=== PATIENT | male | born 1945 | race Caucasian/White ===

== ENCOUNTER 2019-06-02 13:53 | Emergency (ER) | payer MEDICARE, OTHER ==
[~2019-06-02] VITALS: Ht 177.8 cm; Wt 75.0 kg
[~2019-06-02 13:53] MED LIST: ATOR20TA66 PO; CALC-336; FAMO-128 PO; FOLI1TAB16 PO; IRON SUPPLEMENT; METH2.5T PO; MULT-933 PO; TADA5TAB2 PO; UBID10CA4
[2019-06-02] MEDS ORDERED: aspirin 81mg tab.chew PO ONE (14:00)
[2019-06-02 14:24] LABS: MAGNESIUM 2.2 MG/DL (1.5-2.4)
[2019-06-02 14:33] LABS: D-DIMER 0.34 MG/L FEU (0-0.50)
[2019-06-02 17:15] VITALS: BP 116/62
[2019-06-03] MEDS ORDERED: OSC500T PO (10:37)
[2019-06-03] MEDS ORDERED: MULT1TAB74 PO (10:38)
== END 2019-06-02 17:39 | disposition home or self-care (01) ==
LOC: ER 13:54
DX: R94.31 Abnormal electrocardiogram [ECG] [EKG] (principal); R07.89 Other chest pain; Z87.891 Personal history of nicotine dependence; Z79.899 Other long term (current) drug therapy
CPT/HCPCS: 36415; 83735; 83880; 84484; 85379; 93306; 94010; 94760; 99284

== ENCOUNTER 2019-06-06 05:14 | Inpatient (IN) | payer MEDICARE, OTHER ==
--- NOTE | 2019-06-02 13:45 | NUR ---
CALLED BY UNDERWRITING CLERKS SUPERVISOR TO REVIEW EKG. ST ELEVATION NOTED IN 2, [address] CHANG TO NOTIFY HIM OF FINDINGS AND PT BEING SENT TO THE ED [facility]. PT C/O MILD THROAT DISCOMFORT LAST NIGHT BUT NO THER S/S OF [place]. ER NOTIFIED OF PT TAKEN TO BED #5 VIA WC FOR EVALUATION, REPORT TO RN AND MD TAKING OVER PT CARE.
[2019-06-02 13:54] LABS: CLARITY,URINE CLEAR (Clear); COLOR,URINE YELLOW (Yellow); GLUCOSE, URINE NEGATIVE (Neg); KETONES,URINE NEGATIVE (Neg); LEUKOCYTE ESTERASE ,URINE NEGATIVE (Neg); NITRITES, URINE NEGATIVE (Neg); OCCULT BLOOD,URINE NEGATIVE (Neg); PH,URINE 5.5 (4.8-8.0); PROTEIN,URINE NEGATIVE (Neg); UROBILINOGEN,URINE 0.2 E.U/dL (0.2-1.0)
[2019-06-02 13:54] LABS: BASOPHILS % (AUTO) 0.3 % (0-1); EOSINOPHILS # (AUTO) 0.2 X10'3 (0-0.9); EOSINOPHILS % (AUTO) 1.8 % (0-6); LYMPHOCYTES # (AUTO) 0.8 X10'3 (1.1-4.8); LYMPHOCYTES % (AUTO) 9.5 % (21-51); MEAN CORPUSCULAR HEMOGLOBIN 32.5 PG (27.0-31.0); MEAN CORPUSCULAR HGB CONC 33.5 g/dL (33.0-36.5); MEAN CORPUSCULAR VOLUME 97.1 FL (78-98); MEAN PLATELET VOLUME 8.3 FL (7.4-10.4); MONOCYTES # (AUTO) 2.4 X10'3 (0-0.9); MONOCYTES % (AUTO) 27.7 % (2-12); NEUTROPHILS # (AUTO) 5.3 X10'3 (1.8-7.7); NEUTROPHILS % (AUTO) 60.7 % (42-75); PRE OP HEMATOCRIT 38.5 % (42.0-52.0); PRE OP HEMOGLOBIN 12.9 g/dL (14.0-17.9); PRE OP PLATELET COUNT 194 X10'3 (140-440); RED BLOOD COUNT 3.96 X10'6 (4.70-6.10); RED CELL DISTRIBUTION WIDTH 17.2 % (11.5-14.5)
[2019-06-02 14:09] LABS: PRE OP PROTIME 10.3 SECONDS (9.0-12.0)
[2019-06-02 14:15] LABS: HEMOGLOBIN A1C 5.1 % (4.5-6.2)
[2019-06-02 14:22] LABS: ANISOCYTOSIS 1+; PLATELET ESTIMATE NORMAL; TOTAL CELLS COUNTED 100
[2019-06-02 14:23] LABS: ALBUMIN 3.2 G/DL (3.4-5.0); ALBUMIN/GLOBULIN RATIO 0.8 (1.1-1.5); ALKALINE PHOSPHATASE 69 IU/L (46-116); BLOOD UREA NITROGEN 15 MG/DL (7-18); BUN/CREATININE RATIO 15.8 (5.4-32.0); CALCIUM 8.4 MG/DL (8.5-10.1); CHLORIDE 105 MMOL/L (99-107); CREATININE 0.95 MG/DL (0.60-1.10); PRE OP ALT 24 U/L (30-65); PRE OP ANION GAP 7 (8-16); PRE OP AST 21 U/L (10-37); PRE OP BILIRUB, TOTAL 0.7 MG/DL (0.0-1.0); PRE OP GLUCOSE 68 MG/DL (70-104); PRE OP SODIUM 142 MMOL/L (135-145); TOTAL CARBON DIOXIDE 29.7 MMOL/L (24-32); eGFR 77 ML/MIN
[2019-06-02 14:29] LABS: UA COLLECTION TYPE CLN CATCH MIDSTREAM
[2019-06-02 14:40] LABS: ABG BASE EXCESS 1.1 mmol/L (-2.0-3.0); ABG HCO3 24.5 mmol/L (22.0-26.0); ABG OXYGEN SATURATION 97.1 % (95-98); ABG PCO2 (T) 35.1 mmHg (35.0-45.0); ABG PH (T) 7.462 (7.350-7.450); ABG PO2 (T) 87.1 mmHg (83-108); ALLEN'S TEST Positive; FCOHb 0.7 % (0.5-1.5); FMetHb 0.2 % (0.3-1.12); FO2Hb 96.2 % (94-100); TOTAL HEMOGLOBIN 13.4 G/dl (14.0-17.9)
[2019-06-06] VITALS (14 sets, daily range): BP systolic 96–126; BP diastolic 42–69
[~2019-06-06] VITALS: Ht 177.8 cm; Wt 80.1 kg
[~2019-06-06 05:14] MED LIST changes: -CALC-336; -IRON SUPPLEMENT; -MULT-933 PO; +MULT1TAB74 PO; +OSC500T PO; -UBID10CA4
[2019-06-06] MEDS ORDERED: mupirocin 2% nasal ointment 1gm UD NS ONE (05:30)
[2019-06-06] MEDS ORDERED: gabapentin 400mg capsule PO ONE (05:30)
[2019-06-06] MEDS ORDERED: cefazolin/dext.iso 2gm/100 ML IV ONE (05:30)
[2019-06-06] MEDS ORDERED: famotidine 20mg tablet PO ONE (05:30)
[2019-06-06] MEDS ORDERED: LIDOcaine 1% (10mg/ml) 2ml vial ONE ×2 (05:45→06:57)
[2019-06-06] MEDS ORDERED: CITROCAL PO (06:12)
[2019-06-06] MEDS ORDERED: UBID100C16 PO (06:13)
[2019-06-06] MEDS: ringers solution, lacted 1,000 ML IV SCH ×2 (06:14→20:44)
[2019-06-06] MEDS ORDERED: gabapentin 300mg capsule PO ONE (06:20)
[2019-06-06] MEDS ORDERED: BUPIVAcaine/PF 2.5 mg/ml (0.25%) 30ml vial ONE ×2 (06:50→08:22)
--- NOTE | 2019-06-06 07:00 | NUR ---
OR NOTIFIED OF PTS ACNE
[2019-06-06] MEDS ORDERED: MIDAZolam 5mg/5ml vial ONE (07:07)
[2019-06-06] MEDS ORDERED: fentaNYL /PF 50mcg/ml 5ml ampule ONE (07:08)
[2019-06-06] MEDS ORDERED: propofol inj 20 ML IV ONE (07:09)
[2019-06-06] MEDS ORDERED: LIDOcaine 2% (20mg/ml) 5ml vial ONE (07:09)
[2019-06-06] MEDS ORDERED: ondansetron/PF 4mg/2ml inj ONE (07:09)
[2019-06-06] MEDS ORDERED: rocuronium 10mg/ml inj IV ONE ×2 (07:09→07:10)
[2019-06-06] MEDS ORDERED: dexamethasone sod phosphate 4mg/ml inj. ONE (07:09)
[2019-06-06] MEDS ORDERED: ePHEDrine 50MG/ML INJ. ONE (07:10)
[2019-06-06] MEDS ORDERED: sevoflurane 250ml liquid IH ONE (07:10)
[2019-06-06] MEDS ORDERED: ringers solution, lacted 1,000 ML IV SCH (07:13)
[2019-06-06] MEDS ORDERED: hydrALAZINE 20mg/ml inj. IV PRN (07:15)
[2019-06-06] MEDS ORDERED: morphine 4 MG/ML inj SYRINge IV PRN ×4 (07:15→12:00)
[2019-06-06] MEDS ORDERED: labetalol 20mg/4ml (5mg/ml) syringe IV PRN (07:15)
[2019-06-06] MEDS ORDERED: ondansetron/PF 4mg/2ml inj IV PRN ×2 (07:15→12:00)
[2019-06-06] MEDS ORDERED: fentaNYL/PF 50MCG/1 ML 2ML syringe IV PRN ×2 (07:15)
[2019-06-06] MEDS ORDERED: morphine 10mg/ml inj. ONE (11:34)
[2019-06-06] MEDS ORDERED: neostigmine methylsulfate 1 MG/ML 10ml vial ONE (11:44)
[2019-06-06] MEDS ORDERED: glycopyrrolate 0.2mg/ml inj ONE (11:44)
[2019-06-06] MEDS ORDERED: metoclopramide 5 mg/ml inj IV PRN (12:00)
[2019-06-06] MEDS ORDERED: HYDROcodone/acetaminophen 10/325mg tab PO PRN ×2 (12:00)
[2019-06-06] MEDS ORDERED: naloxone 0.4 mg/ml inj IV PRN (12:00)
[2019-06-06] MEDS ORDERED: magnesium hydroxide 30ml (MOM) UD suspension PO PRN (12:00)
--- NOTE | 2019-06-06 12:15 | NUR ---
ADMITTED TO PACU FROM OR ACCOMPANIED BY ANESTHESIA. INTIAL PHYSICAL ASSESSMENT DONE AND RECORDED. AWAKE AND RESPONSE ON ARRIVE YO PACU, REPORT RECEIVED FROM ANESTHESIA.
--- NOTE | 2019-06-06 13:45 | NUR ---
PACU DISCHARGE CRITERIA MET, REPORT GIVEN TO FLOOR. DENIES PAIN OR DISCOMFORT, TRANSFERRED TO ROOM IN STABLE GOOD CONDITION.
[2019-06-06] MEDS: ketorolac tromethamine 15mg/ml inj. IV SCH ×2 (14:00→19:42)
--- NOTE | 2019-06-06 14:24 | NUR ---
Pt. arrived from recovery. Pt. does not have any complaints. Pt. has cali and chest tube. Chest tube to suction. Pt. placed on monitor and vitals taken. Pt. educated on his room and call light.
[2019-06-06 15:42] LABS: BASOPHILS % (AUTO) 0.1 % (0-1); EOSINOPHILS % (AUTO) 0.1 % (0-6); HEMATOCRIT 36.1 % (42.0-52.0); HEMOGLOBIN 12.1 g/dl (14.0-17.9); LYMPHOCYTES # (AUTO) 0.2 X10'3 (1.1-4.8); LYMPHOCYTES % (AUTO) 1.6 % (21-51); MEAN CORPUSCULAR HEMOGLOBIN 32.5 PG (27.0-31.0); MEAN CORPUSCULAR HGB CONC 33.5 g/dL (33.0-36.5); MEAN CORPUSCULAR VOLUME 97.1 FL (78-98); MEAN PLATELET VOLUME 7.9 FL (7.4-10.4); MONOCYTES % (AUTO) 7.6 % (2-12); NEUTROPHILS # (AUTO) 12.4 X10'3 (1.8-7.7); NEUTROPHILS % (AUTO) 90.6 % (42-75); PLATELET COUNT 186 X10'3 (140-440); RED BLOOD COUNT 3.72 X10'6 (4.70-6.10); RED CELL DISTRIBUTION WIDTH 17.3 % (11.5-14.5); WHITE BLOOD COUNT 13.7 X10'3 (4.5-11.0)
[2019-06-06] MEDS ORDERED: ceFAZolin inj. 1,000 MG in dextrose 5%-water 50ml 50 ML IV SCH (16:00)
[2019-06-06 16:03] LABS: ALANINE AMINOTRANSFERASE 25 U/L (12-78); ALBUMIN 2.8 G/DL (3.4-5.0); ALBUMIN/GLOBULIN RATIO 0.8 (1.1-1.5); ALKALINE PHOSPHATASE 55 IU/L (46-116); ANION GAP 8 (8-16); ASPARTATE AMINO TRANSFERASE 27 U/L (10-37); BILIRUBIN,TOTAL 0.4 MG/DL (0.1-1.0); BLOOD UREA NITROGEN 12 MG/DL (7-18); BUN/CREATININE RATIO 13.8 (5.4-32.0); CALCIUM 8.1 MG/DL (8.5-10.1); CHLORIDE 107 MMOL/L (99-107); CREATININE 0.87 MG/DL (0.60-1.10); GLUCOSE 133 MG/DL (70-104); POTASSIUM 3.9 MMOL/L (3.5-5.1); SODIUM 141 MMOL/L (135-145); TOTAL CARBON DIOXIDE 26.1 MMOL/L (24-32); TOTAL PROTEIN 6.2 G/DL (6.4-8.2); eGFR 85 ML/MIN
[2019-06-06] MEDS: ceFAZolin 1GM/D5W- ADD-VANTAGE 50 ML IV SCH ×2 (16:17→23:57)
--- NOTE | 2019-06-06 18:27 | NUR ---
Problems reprioritized. Patient report given, questions answered & plan of care reviewed with Maddy RASHID and Rosi RASHID.
--- NOTE | 2019-06-06 18:27 | NUR ---
Patient in room MED 307. I have received report from Kelton RASHID and had the opportunity to ask questions and assume patient care.
[2019-06-06] MEDS: docusate sod 100mg capsule PO SCH ×2 (19:40→20:39)
[2019-06-06] MEDS: sennosides/docusate sodium tablet PO SCH (19:40)
[2019-06-06] MEDS: gabapentin 300mg capsule PO SCH (19:41)
[2019-06-06] MEDS: albuterol 2.5 MG/3 ML nebule NEB SCH ×2 (19:41→23:04)
[2019-06-06] MEDS: atorvastatin 20mg tablet PO SCH (20:40)
[2019-06-07] MEDS: ketorolac tromethamine 15mg/ml inj. IV SCH ×2 (01:52→08:14)
[2019-06-07 02:00] VITALS: BP 105/48
[2019-06-07] MEDS: albuterol 2.5 MG/3 ML nebule NEB SCH ×6 (03:25→23:09)
[2019-06-07 04:14] LABS: BASOPHILS % (AUTO) 0.1 % (0-1); EOSINOPHILS % (AUTO) 0 % (0-6); HEMATOCRIT 33.1 % (42.0-52.0); HEMOGLOBIN 10.9 g/dl (14.0-17.9); LYMPHOCYTES # (AUTO) 0.6 X10'3 (1.1-4.8); LYMPHOCYTES % (AUTO) 4.7 % (21-51); MEAN CORPUSCULAR HGB CONC 32.8 g/dL (33.0-36.5); MEAN CORPUSCULAR VOLUME 97.4 FL (78-98); MEAN PLATELET VOLUME 8.3 FL (7.4-10.4); MONOCYTES # (AUTO) 2.9 X10'3 (0-0.9); MONOCYTES % (AUTO) 25.2 % (2-12); NEUTROPHILS # (AUTO) 8.2 X10'3 (1.8-7.7); PLATELET COUNT 213 X10'3 (140-440); RED CELL DISTRIBUTION WIDTH 18.1 % (11.5-14.5); WHITE BLOOD COUNT 11.7 X10'3 (4.5-11.0)
[2019-06-07 04:25] LABS: ALANINE AMINOTRANSFERASE 19 U/L (12-78); ALBUMIN 2.4 G/DL (3.4-5.0); ALBUMIN/GLOBULIN RATIO 0.8 (1.1-1.5); ALKALINE PHOSPHATASE 47 IU/L (46-116); ANION GAP 7 (8-16); ASPARTATE AMINO TRANSFERASE 21 U/L (10-37); BILIRUBIN,TOTAL 0.3 MG/DL (0.1-1.0); BLOOD UREA NITROGEN 13 MG/DL (7-18); BUN/CREATININE RATIO 10.8 (5.4-32.0); CALCIUM 7.6 MG/DL (8.5-10.1); CHLORIDE 104 MMOL/L (99-107); GLUCOSE 189 MG/DL (70-104); POTASSIUM 4.3 MMOL/L (3.5-5.1); SODIUM 137 MMOL/L (135-145); TOTAL PROTEIN 5.6 G/DL (6.4-8.2); eGFR 59 ML/MIN
--- NOTE | 2019-06-07 05:49 | NUR ---
Orienteer documentation: I have reviewed and agree with all interventions, assessments performed and documented by RACHID Aranda. Orienteer Medication Administration: For this medication-pass time frame, all medication were reviewed, dispensed, administered and documented per hospital policy by RACHID Aranda.
--- NOTE | 2019-06-07 06:25 | NUR ---
Patient in room MED 307. I have received report from Maddy RASHID and had the opportunity to ask questions and assume patient care.
--- NOTE | 2019-06-07 06:34 | NUR ---
Problems reprioritized. Patient report given, questions answered & plan of care reviewed with Farideh RASHID.
[2019-06-07 06:35] VITALS: BP 98/44
[2019-06-07] MEDS: CO Q10 100 MG PO SCH (08:00)
[2019-06-07] MEDS ORDERED: calcium carbonate 500mg tablet PO SCH (08:00)
[2019-06-07] MEDS ORDERED: non-formulary drug (Ubidecarenone (Coq-10) 100 MG) PO SCH (08:00)
[2019-06-07] MEDS ORDERED: non-formulary drug (Multivitamins 1 TAB) PO SCH (08:00)
[2019-06-07] MEDS ORDERED: CITROCAL PO SCH (08:00)
[2019-06-07] MEDS: docusate sod 100mg capsule PO SCH ×3 (08:00→20:07)
--- NOTE | 2019-06-07 08:01 | NUR ---
Dr. Banda at bedside, okay to leave f/c in until CT comes out tomorrow, dc'd LR, okay to pull central line.
[2019-06-07] MEDS: sennosides/docusate sodium tablet PO SCH ×2 (08:12→20:06)
[2019-06-07] MEDS: calcium carbonate 500mg tablet PO SCH (08:12)
[2019-06-07] MEDS: folic acid 1mg tablet PO SCH (08:13)
[2019-06-07] MEDS: gabapentin 300mg capsule PO SCH ×2 (08:13→20:07)
[2019-06-07] MEDS: famotidine 20mg tablet PO SCH (08:13)
[2019-06-07] MEDS: multivitamins, therapeutics tablet PO SCH (08:13)
--- NOTE | 2019-06-07 09:46 | NUR ---
Paged hospitalist, "[phone]- Rm. [phone] Jamie Saldana- do you want to maintain fluid restriction 2L?" Waiting on callback.
--- NOTE | 2019-06-07 10:17 | NUR ---
Received report from P.T. that patient tolerated 200 ft. well today, Weaned off O2 to RA 92-100% and Respirations 20-30 while up, BP 98/68. Will cont. to walk patient.
[2019-06-07 11:00] VITALS: BP 106/47
[2019-06-07 13:01] LABS: ALBUMIN 2.6 G/DL (3.4-5.0); ANION GAP 6 (8-16); BLOOD UREA NITROGEN 15 MG/DL (7-18); BUN/CREATININE RATIO 14.2 (5.4-32.0); CALCIUM 7.9 MG/DL (8.5-10.1); CHLORIDE 101 MMOL/L (99-107); CREATININE 1.06 MG/DL (0.60-1.10); GLUCOSE 154 MG/DL (70-104); POTASSIUM 3.7 MMOL/L (3.5-5.1); SODIUM 135 MMOL/L (135-145); TOTAL CARBON DIOXIDE 28.3 MMOL/L (24-32); eGFR 68 ML/MIN
[2019-06-07 15:00] VITALS: BP 96/46
--- NOTE | 2019-06-07 17:59 | NUR ---
Called Scott CHISHOLM to request an enema for patient as he uses them frequently per his own home protocol. Received order for enema.
[2019-06-07 18:00] VITALS: BP 110/58
[2019-06-07] MEDS ORDERED: mineral oil 133ml enema RC PRN (18:05)
--- NOTE | 2019-06-07 18:20 | NUR ---
Problems reprioritized. Patient report given, questions answered & plan of care reviewed with Maddy RASHID/Rosi RASHID.
--- NOTE | 2019-06-07 18:55 | NUR ---
Patient in room MED 307. I have received report from RACHID Gong and had the opportunity to ask questions and assume patient care.
[2019-06-07] MEDS: atorvastatin 20mg tablet PO SCH (20:11)
[2019-06-07 22:00] VITALS: BP 115/57
--- NOTE | 2019-06-08 01:15 | NUR ---
patient requested fleets enema for bowel self care on day shift, implemented this evening, scant stool produced, requested MOM subsequently.
[2019-06-08 02:00] VITALS: BP 110/47
[2019-06-08] MEDS: albuterol 2.5 MG/3 ML nebule NEB SCH ×6 (03:00→23:58)
--- NOTE | 2019-06-08 05:34 | NUR ---
Orienteer documentation: I have reviewed and agree with all interventions, assessments performed and documented by Rosi Dowell RN. Orienteer Medication Administration: For this medication-pass time frame, all medication were reviewed, dispensed, administered and documented per hospital policy by Rosi Dowell RN.
[2019-06-08 06:03] LABS: BASOPHILS % (AUTO) 0.3 % (0-1); EOSINOPHILS # (AUTO) 0.2 X10'3 (0-0.9); EOSINOPHILS % (AUTO) 2.5 % (0-6); HEMATOCRIT 33.3 % (42.0-52.0); HEMOGLOBIN 11.2 g/dl (14.0-17.9); LYMPHOCYTES % (AUTO) 11.8 % (21-51); MEAN CORPUSCULAR HEMOGLOBIN 32.5 PG (27.0-31.0); MEAN CORPUSCULAR HGB CONC 33.8 g/dL (33.0-36.5); MEAN CORPUSCULAR VOLUME 96.3 FL (78-98); MONOCYTES # (AUTO) 1.8 X10'3 (0-0.9); MONOCYTES % (AUTO) 20.8 % (2-12); NEUTROPHILS # (AUTO) 5.6 X10'3 (1.8-7.7); NEUTROPHILS % (AUTO) 64.6 % (42-75); PLATELET COUNT 204 X10'3 (140-440); RED BLOOD COUNT 3.46 X10'6 (4.70-6.10); RED CELL DISTRIBUTION WIDTH 17.3 % (11.5-14.5); WHITE BLOOD COUNT 8.7 X10'3 (4.5-11.0)
[2019-06-08 06:25] LABS: ALANINE AMINOTRANSFERASE 24 U/L (12-78); ALBUMIN 2.5 G/DL (3.4-5.0); ALBUMIN/GLOBULIN RATIO 0.7 (1.1-1.5); ALKALINE PHOSPHATASE 49 IU/L (46-116); ANION GAP 6 (8-16); ASPARTATE AMINO TRANSFERASE 25 U/L (10-37); BILIRUBIN,TOTAL 0.2 MG/DL (0.1-1.0); BLOOD UREA NITROGEN 15 MG/DL (7-18); CALCIUM 8.1 MG/DL (8.5-10.1); CHLORIDE 108 MMOL/L (99-107); CREATININE 0.88 MG/DL (0.60-1.10); GLUCOSE 105 MG/DL (70-104); POTASSIUM 4.2 MMOL/L (3.5-5.1); SODIUM 143 MMOL/L (135-145); TOTAL CARBON DIOXIDE 28.7 MMOL/L (24-32); TOTAL PROTEIN 5.9 G/DL (6.4-8.2); eGFR 84 ML/MIN
--- NOTE | 2019-06-08 06:32 | NUR ---
Problems reprioritized. Patient report given, questions answered & plan of care reviewed with Art, RN .
[2019-06-08] MEDS ORDERED: magnesium citrate 296ml oral solution PO ONE (06:55)
[2019-06-08] MEDS: gabapentin 300mg capsule PO SCH (07:25)
[2019-06-08] MEDS: calcium carbonate 500mg tablet PO SCH (07:25)
[2019-06-08] MEDS: sennosides/docusate sodium tablet PO SCH ×2 (07:25→20:00)
[2019-06-08] MEDS: multivitamins, therapeutics tablet PO SCH (07:25)
[2019-06-08] MEDS: docusate sod 100mg capsule PO SCH ×2 (07:26→20:00)
[2019-06-08] MEDS: famotidine 20mg tablet PO SCH (07:26)
[2019-06-08] MEDS: CO Q10 100 MG PO SCH (07:26)
[2019-06-08] MEDS: folic acid 1mg tablet PO SCH (07:26)
[2019-06-08 08:09] VITALS: BP 112/57
--- NOTE | 2019-06-08 08:30 | NUR ---
patient refused svntx Addendum: 06/08/19 at 0847 by Dinora Taveras RT Amended: Links added.
[2019-06-08 08:38] LABS: TOTAL CELLS COUNTED 100
[2019-06-08 08:39] LABS: ANISOCYTOSIS 1+; PLATELET ESTIMATE NORMAL
--- NOTE | 2019-06-08 10:37 | NUR ---
Dr. Banda evaluated pt for chest tube removal. Pt chest tube was repositioned and secured. CT placed to suction. Pt cali to remain until Chest tube is removed.
[2019-06-08 11:00] VITALS: BP 105/43
--- NOTE | 2019-06-08 11:02 | NUR ---
Initial: Pt a/p L VATS for lung nodule. PO 100% heart healthy diet meeting needs post-op receiving oscal, folate, and MVI. LBM 06/05 complains of constipation today per MD note receiving multiple routine bowel care meds a/ mineral oil enema ordered PRN not yet administered. Will continue to monitor. Rec: 1. continue heart healthy diet 2. MVI for wounds 3. routine bowel care 4. wt per rx Addendum: 06/08/19 at [address] Amended: Links added.
[2019-06-08 12:10] LABS: ALBUMIN 2.6 G/DL (3.4-5.0); ANION GAP 8 (8-16); BLOOD UREA NITROGEN 14 MG/DL (7-18); BUN/CREATININE RATIO 16.9 (5.4-32.0); CALCIUM 8.8 MG/DL (8.5-10.1); CHLORIDE 105 MMOL/L (99-107); CREATININE 0.83 MG/DL (0.60-1.10); GLUCOSE 100 MG/DL (70-104); POTASSIUM 4.2 MMOL/L (3.5-5.1); SODIUM 139 MMOL/L (135-145); TOTAL CARBON DIOXIDE 26.4 MMOL/L (24-32); eGFR 90 ML/MIN
--- NOTE | 2019-06-08 12:56 | NUR ---
xray in room
[2019-06-08 15:00] VITALS: BP 100/54
--- NOTE | 2019-06-08 18:00 | NUR ---
Patient in room MED 307. I have received report from Art, RN and had the opportunity to ask questions and assume patient care.
[2019-06-08 19:00] VITALS: BP 102/47
[2019-06-08] MEDS: atorvastatin 20mg tablet PO SCH (21:27)
[2019-06-08 23:00] VITALS: BP 109/51
[2019-06-09] VITALS (8 sets, daily range): BP systolic 107–135; BP diastolic 52–68
[2019-06-09] MEDS: albuterol 2.5 MG/3 ML nebule NEB SCH ×6 (03:00→23:00)
[2019-06-09 05:00] LABS: BASOPHILS % (AUTO) 0.3 % (0-1); EOSINOPHILS # (AUTO) 0.3 X10'3 (0-0.9); EOSINOPHILS % (AUTO) 3.1 % (0-6); HEMATOCRIT 33.2 % (42.0-52.0); HEMOGLOBIN 11.1 g/dl (14.0-17.9); LYMPHOCYTES # (AUTO) 1.1 X10'3 (1.1-4.8); LYMPHOCYTES % (AUTO) 10.8 % (21-51); MEAN CORPUSCULAR HEMOGLOBIN 32.5 PG (27.0-31.0); MEAN CORPUSCULAR HGB CONC 33.3 g/dL (33.0-36.5); MEAN CORPUSCULAR VOLUME 97.6 FL (78-98); MEAN PLATELET VOLUME 8.3 FL (7.4-10.4); MONOCYTES # (AUTO) 1.8 X10'3 (0-0.9); MONOCYTES % (AUTO) 18.5 % (2-12); NEUTROPHILS # (AUTO) 6.6 X10'3 (1.8-7.7); NEUTROPHILS % (AUTO) 67.3 % (42-75); PLATELET COUNT 201 X10'3 (140-440); RED CELL DISTRIBUTION WIDTH 17.4 % (11.5-14.5); WHITE BLOOD COUNT 9.7 X10'3 (4.5-11.0)
[2019-06-09 05:07] LABS: ALANINE AMINOTRANSFERASE 19 U/L (12-78); ALBUMIN 2.3 G/DL (3.4-5.0); ALBUMIN/GLOBULIN RATIO 0.7 (1.1-1.5); ALKALINE PHOSPHATASE 46 IU/L (46-116); ANION GAP 5 (8-16); ASPARTATE AMINO TRANSFERASE 23 U/L (10-37); BILIRUBIN,TOTAL 0.3 MG/DL (0.1-1.0); BLOOD UREA NITROGEN 12 MG/DL (7-18); BUN/CREATININE RATIO 14.1 (5.4-32.0); CALCIUM 8.1 MG/DL (8.5-10.1); CHLORIDE 108 MMOL/L (99-107); CREATININE 0.85 MG/DL (0.60-1.10); GLUCOSE 114 MG/DL (70-104); POTASSIUM 4.4 MMOL/L (3.5-5.1); SODIUM 141 MMOL/L (135-145); TOTAL CARBON DIOXIDE 27.8 MMOL/L (24-32); TOTAL PROTEIN 5.6 G/DL (6.4-8.2); eGFR 88 ML/MIN
[2019-06-09 06:19] LABS: ANISOCYTOSIS 1+; PLATELET ESTIMATE NORMAL; TOTAL CELLS COUNTED 100
[2019-06-09] MEDS: folic acid 1mg tablet PO SCH (07:33)
[2019-06-09] MEDS: CO Q10 100 MG PO SCH (07:33)
[2019-06-09] MEDS: multivitamins, therapeutics tablet PO SCH (07:33)
[2019-06-09] MEDS: famotidine 20mg tablet PO SCH (07:33)
[2019-06-09] MEDS: calcium carbonate 500mg tablet PO SCH (07:34)
[2019-06-09] MEDS: sennosides/docusate sodium tablet PO SCH ×2 (07:37→20:00)
[2019-06-09] MEDS: docusate sod 100mg capsule PO SCH ×2 (07:37→20:00)
--- NOTE | 2019-06-09 09:33 | NUR ---
Pt chest tube removed by Dr. Banda, pt cali cath removed.
[2019-06-09 11:45] LABS: ALBUMIN 2.7 G/DL (3.4-5.0); ANION GAP 6 (8-16); BLOOD UREA NITROGEN 13 MG/DL (7-18); BUN/CREATININE RATIO 15.9 (5.4-32.0); CALCIUM 8.6 MG/DL (8.5-10.1); CHLORIDE 104 MMOL/L (99-107); CREATININE 0.82 MG/DL (0.60-1.10); GLUCOSE 99 MG/DL (70-104); POTASSIUM 4.1 MMOL/L (3.5-5.1); SODIUM 139 MMOL/L (135-145); TOTAL CARBON DIOXIDE 29.2 MMOL/L (24-32); eGFR > 90 ML/MIN
--- NOTE | 2019-06-09 16:09 | NUR ---
Pt to IR to have chest tube inserted.
[2019-06-09] MEDS: atorvastatin 20mg tablet PO SCH (20:50)
--- NOTE | 2019-06-09 21:32 | NUR ---
Patient in room MED 307. I have received report from Art RN and had the opportunity to ask questions and assume patient care.
[2019-06-10 02:00] VITALS: BP 151/72
--- NOTE | 2019-06-10 02:01 | NUR ---
Went to assess chest tube per Q2hr protocol, and patient informed me that he "threw up" and I noted large container, approximately 800 mls of emesis in container. I asked when he vomited, and patient replied "about an hour ago", which had not occurred yet at my 0100 am hourly rounding with the patient. I informed him it was essential he notify us IMMEDIATELY of any type of vomiting/nausea, etc. I immediately notified the charge Trice RASHID, and we both went in to assess patient together. We felt crepitus all around the chest tube site on his left anterior and posterior wall, as well as crepitus noted at the left clavicular site, moving to his right upper thoracic wall. Will continue to monitor and notify MD of situation.
--- NOTE | 2019-06-10 02:02 | NUR ---
PHAN Larson regarding presence of crepitus. Per pt, he had a large size vomitus about an hour ago (700ml), he did not report to RN despite RN advise. When RN assessed pt, pt was noted guarding his chest tube side on left lateral side, suction canister is not working properly, crepitus is present around chest tube site, upper chest and right below the neck area.
--- NOTE | 2019-06-10 02:30 | NUR ---
Notified Dr. Banda of pt's onset of diffusing crepitus, DRILL PRESS OPERATOR FOR [employer] did a courtesy X-ray, image is up and if he would review the imaging and advise. Dr. Banda wants to know if chest tube is on suctioning. RN advised that suctioning might not be working properly, additionally pt had a large vomitus of 700ml and the force could have dislodged the chest tube.
[2019-06-10] MEDS: albuterol 2.5 MG/3 ML nebule NEB SCH ×6 (03:00→23:00)
[2019-06-10 06:16] LABS: BASOPHILS % (AUTO) 0.1 % (0-1); EOSINOPHILS # (AUTO) 0.1 X10'3 (0-0.9); EOSINOPHILS % (AUTO) 0.8 % (0-6); HEMATOCRIT 37.7 % (42.0-52.0); HEMOGLOBIN 12.7 g/dl (14.0-17.9); LYMPHOCYTES # (AUTO) 0.5 X10'3 (1.1-4.8); LYMPHOCYTES % (AUTO) 3.4 % (21-51); MEAN CORPUSCULAR HEMOGLOBIN 32.6 PG (27.0-31.0); MEAN CORPUSCULAR HGB CONC 33.6 g/dL (33.0-36.5); MEAN CORPUSCULAR VOLUME 96.9 FL (78-98); MEAN PLATELET VOLUME 8.2 FL (7.4-10.4); MONOCYTES # (AUTO) 1.8 X10'3 (0-0.9); MONOCYTES % (AUTO) 13.4 % (2-12); NEUTROPHILS # (AUTO) 10.9 X10'3 (1.8-7.7); NEUTROPHILS % (AUTO) 82.3 % (42-75); PLATELET COUNT 267 X10'3 (140-440); RED BLOOD COUNT 3.89 X10'6 (4.70-6.10); RED CELL DISTRIBUTION WIDTH 17.1 % (11.5-14.5); WHITE BLOOD COUNT 13.2 X10'3 (4.5-11.0)
[2019-06-10 06:30] VITALS: BP 147/69
--- NOTE | 2019-06-10 06:30 | NUR ---
RECEIVED REPORT THIS AM AND ASSUMED CARE OF PATIENT. PATIENT HAS ONE CHEST TUBE TO LT ANTERIOR CHEST. CHEST TUBE INTACT, NO AIR LEAK NOTED ; HOWEVER, SUB Q EMPHYSEMA PRESENT PER PALPATION. OUTLINED SQ AIR FOR BASELINE. DENIES CHEST PAIN, SOB. Addendum: 06/10/19 at 1700 by Cherelle Barnett RN Amended: Links added.
[2019-06-10 06:36] LABS: ALANINE AMINOTRANSFERASE 25 U/L (12-78); ALBUMIN 2.7 G/DL (3.4-5.0); ALBUMIN/GLOBULIN RATIO 0.7 (1.1-1.5); ALKALINE PHOSPHATASE 58 IU/L (46-116); ANION GAP 7 (8-16); ASPARTATE AMINO TRANSFERASE 23 U/L (10-37); BILIRUBIN,TOTAL 0.6 MG/DL (0.1-1.0); BLOOD UREA NITROGEN 13 MG/DL (7-18); BUN/CREATININE RATIO 14.1 (5.4-32.0); CALCIUM 9.9 MG/DL (8.5-10.1); CHLORIDE 102 MMOL/L (99-107); CREATININE 0.92 MG/DL (0.60-1.10); GLUCOSE 169 MG/DL (70-104); POTASSIUM 4.1 MMOL/L (3.5-5.1); SODIUM 138 MMOL/L (135-145); TOTAL CARBON DIOXIDE 28.8 MMOL/L (24-32); TOTAL PROTEIN 6.8 G/DL (6.4-8.2); eGFR 80 ML/MIN
--- NOTE | 2019-06-10 06:44 | NUR ---
Reviewed and agreed with Casa Dowell RN's charting.
--- NOTE | 2019-06-10 06:47 | NUR ---
Problems reprioritized. Patient report given, questions answered & plan of care reviewed with Pat RN.
[2019-06-10] MEDS ORDERED: ondansetron/PF 4mg/2ml inj IV PRN (07:05)
[2019-06-10] MEDS: CO Q10 100 MG PO SCH (08:00)
[2019-06-10] MEDS: famotidine 20mg tablet PO SCH (08:00)
[2019-06-10] MEDS: multivitamins, therapeutics tablet PO SCH (08:00)
[2019-06-10] MEDS: folic acid 1mg tablet PO SCH (08:00)
[2019-06-10] MEDS: sennosides/docusate sodium tablet PO SCH ×2 (08:00→20:00)
[2019-06-10] MEDS: calcium carbonate 500mg tablet PO SCH (08:00)
[2019-06-10] MEDS: docusate sod 100mg capsule PO SCH ×2 (08:00→20:00)
[2019-06-10 11:00] VITALS: BP 138/65
--- NOTE | 2019-06-10 11:45 | NUR ---
JERRY FROM IR INTO SEE PATIENT , AND ASPIRATE CHEST TUBE. C TUBE PATIENT, NO AIR LEAK. Addendum: 06/10/19 at 1455 by Cherelle Barnett RN Amended: Links added.
[2019-06-10 12:08] LABS: ALBUMIN 2.7 G/DL (3.4-5.0); ANION GAP 5 (8-16); BLOOD UREA NITROGEN 13 MG/DL (7-18); BUN/CREATININE RATIO 15.1 (5.4-32.0); CALCIUM 9.9 MG/DL (8.5-10.1); CHLORIDE 102 MMOL/L (99-107); CREATININE 0.86 MG/DL (0.60-1.10); GLUCOSE 144 MG/DL (70-104); POTASSIUM 4.3 MMOL/L (3.5-5.1); SODIUM 136 MMOL/L (135-145); TOTAL CARBON DIOXIDE 29.3 MMOL/L (24-32); eGFR 86 ML/MIN
[2019-06-10 15:00] VITALS: BP 135/58
[2019-06-10 18:00] VITALS: BP 150/69
--- NOTE | 2019-06-10 18:15 | NUR ---
Patient in room MED 307. I have received report from Joseph Leonardo and had the opportunity to ask questions and assume patient care.
[2019-06-10] MEDS ORDERED: normal saline 1000ml 1,000 ML IV SCH (20:10)
--- NOTE | 2019-06-10 20:15 | NUR ---
I received in report that the patient has been having nausea and vomiting since the NOC shift of 06/09/19. The patient continues to be nauseated and has not been able to keep anything down. He has a some yogurt earlier today to which the patient states that it "went down hill after that". He is concerned that he will become dehydrated because of this. He and his family are concerned and would like for him to possibly receive some IV fluids. I contacted PHAN Rivera and he gave orders to administer normal saline IV at 50 mL/hr and also to administer Reglan 10 mg IVP ACHS to help with gastric emptying. Those orders were placed and then given to the patient. Will continue to monitor patient for duration of this shift.
[2019-06-10] MEDS: metoclopramide 5 mg/ml inj IV SCH (20:31)
[2019-06-10] MEDS: atorvastatin 20mg tablet PO SCH (21:00)
[2019-06-10 22:00] VITALS: BP 125/60
[2019-06-11 02:00] VITALS: BP 131/70
[2019-06-11] MEDS: albuterol 2.5 MG/3 ML nebule NEB SCH ×4 (04:01→15:44)
[2019-06-11 06:00] VITALS: BP 103/50
--- NOTE | 2019-06-11 06:27 | NUR ---
Problems reprioritized. Patient report given, questions answered & plan of care reviewed with RACHID Camargo.
--- NOTE | 2019-06-11 06:33 | NUR ---
Patient in room MED 307. I have received report from RACHID CANNON and had the opportunity to ask questions and assume patient care.
[2019-06-11 07:08] LABS: BASOPHILS % (AUTO) 0.2 % (0-1); EOSINOPHILS # (AUTO) 0.1 X10'3 (0-0.9); EOSINOPHILS % (AUTO) 0.9 % (0-6); HEMATOCRIT 35.1 % (42.0-52.0); HEMOGLOBIN 11.6 g/dl (14.0-17.9); LYMPHOCYTES # (AUTO) 0.7 X10'3 (1.1-4.8); LYMPHOCYTES % (AUTO) 5.5 % (21-51); MEAN CORPUSCULAR HEMOGLOBIN 31.8 PG (27.0-31.0); MEAN CORPUSCULAR HGB CONC 33.1 g/dL (33.0-36.5); MEAN CORPUSCULAR VOLUME 95.8 FL (78-98); MEAN PLATELET VOLUME 7.7 FL (7.4-10.4); MONOCYTES # (AUTO) 2.4 X10'3 (0-0.9); MONOCYTES % (AUTO) 18.4 % (2-12); NEUTROPHILS # (AUTO) 9.6 X10'3 (1.8-7.7); PLATELET COUNT 281 X10'3 (140-440); RED BLOOD COUNT 3.66 X10'6 (4.70-6.10); RED CELL DISTRIBUTION WIDTH 17.7 % (11.5-14.5); WHITE BLOOD COUNT 12.8 X10'3 (4.5-11.0)
[2019-06-11] MEDS: metoclopramide 5 mg/ml inj IV SCH ×3 (07:11→17:22)
[2019-06-11 07:34] LABS: ALANINE AMINOTRANSFERASE 21 U/L (12-78); ALBUMIN 2.4 G/DL (3.4-5.0); ALBUMIN/GLOBULIN RATIO 0.6 (1.1-1.5); ALKALINE PHOSPHATASE 52 IU/L (46-116); ANION GAP 7 (8-16); ASPARTATE AMINO TRANSFERASE 23 U/L (10-37); BILIRUBIN,TOTAL 0.4 MG/DL (0.1-1.0); BLOOD UREA NITROGEN 16 MG/DL (7-18); BUN/CREATININE RATIO 18.8 (5.4-32.0); CALCIUM 8.5 MG/DL (8.5-10.1); CHLORIDE 104 MMOL/L (99-107); CREATININE 0.85 MG/DL (0.60-1.10); GLUCOSE 140 MG/DL (70-104); SODIUM 139 MMOL/L (135-145); TOTAL CARBON DIOXIDE 27.7 MMOL/L (24-32); TOTAL PROTEIN 6.1 G/DL (6.4-8.2); eGFR 88 ML/MIN
[2019-06-11 07:39] LABS: ANISOCYTOSIS 1+; PLATELET ESTIMATE NORMAL; TOTAL CELLS COUNTED 100
[2019-06-11] MEDS: folic acid 1mg tablet PO SCH (07:57)
[2019-06-11] MEDS: calcium carbonate 500mg tablet PO SCH (07:57)
[2019-06-11] MEDS: multivitamins, therapeutics tablet PO SCH (07:57)
[2019-06-11] MEDS: sennosides/docusate sodium tablet PO SCH (07:57)
[2019-06-11] MEDS: famotidine 20mg tablet PO SCH (07:57)
[2019-06-11] MEDS: docusate sod 100mg capsule PO SCH (07:57)
[2019-06-11] MEDS: CO Q10 100 MG PO SCH (07:58)
--- NOTE | 2019-06-11 09:21 | NUR ---
SPOKE WITH DR. CHANG PUT CHEST TUBE TO WATER SEAL AND DO CXR IN A COUPLE HOURS. CHEST TUBE PUT TO WATER SEAL
[2019-06-11 10:52] VITALS: BP 111/54
--- NOTE | 2019-06-11 12:20 | NUR ---
DR. CHANG NOTIFIED OF CXR RESULTS, PER DR. CHANG CLAMP CXR AND REPEAT CXR AT 1530
[2019-06-11 14:58] VITALS: BP 119/56
--- NOTE | 2019-06-11 16:14 | NUR ---
dr. kirkpatrick notified of cxr results. he will come see pt to remove chest tube
--- NOTE | 2019-06-11 16:56 | NUR ---
DR. CHANG REMOVED CHEST TUBE. DR. LUU CALLED AND IS AWARE.
[2019-06-11] MEDS ORDERED: HYDR-3972 PO (17:09)
--- NOTE | 2019-06-11 18:10 | NUR ---
PT DISCHARGED IN STABLE CONDITION. PT AND SPOUSE GIVEN DISCHARGE INSTRUCTIONS. ALL BELONGING SENT HOME WITH PT. COBY Miller/Trevor ANN. PT TAKEN TO PRIVATE VEHICLE BY RN. PT GIVEN HAND WRITTEN [facility] RX. Addendum: 06/11/19 at 1816 by Mary Jo Mary RN HOME MEDS SENT WITH PT
== END 2019-06-11 18:00 | disposition home or self-care (01) | DRG 163 ==
LOC: PAS IN 05:14 → EDSTATUS 07:30 → MED 3N 14:05
PROVIDERS: ADMIT Thoracic Surgery (Cardiothoracic Vascular Surgery); ATTEND Thoracic Surgery (Cardiothoracic Vascular Surgery)
PROC: 0BTG4ZZ Resection of Left Upper Lung Lobe, Percutaneous Endoscopic Approach (ICD-10-PCS; 2019-06-06)
PROC: 0BBG4ZX Excision of Left Upper Lung Lobe, Percutaneous Endoscopic Approach, Diagnostic (ICD-10-PCS; 2019-06-06)
PROC: 07T74ZZ Resection of Thorax Lymphatic, Percutaneous Endoscopic Approach (ICD-10-PCS; 2019-06-06)
PROC: 03HY32Z Insertion of Monitoring Device into Upper Artery, Percutaneous Approach (ICD-10-PCS; 2019-06-06)
PROC: 05HY33Z Insertion of Infusion Device into Upper Vein, Percutaneous Approach (ICD-10-PCS; 2019-06-06)
PROC: B544ZZA Ultrasonography of Left Jugular Veins, Guidance (ICD-10-PCS; 2019-06-06)
PROC: 0BJ08ZZ Inspection of Tracheobronchial Tree, Via Natural or Artificial Opening Endoscopic (ICD-10-PCS; 2019-06-06)
PROC: 0W9B30Z Drainage of Left Pleural Cavity with Drainage Device, Percutaneous Approach (ICD-10-PCS; principal; 2019-06-09)
DX: C34.12 Malignant neoplasm of upper lobe, left bronchus or lung (principal); N17.0 Acute kidney failure with tubular necrosis; J98.19 Other pulmonary collapse; J93.82 Other air leak; J93.9 Pneumothorax, unspecified; T79.7XXA Traumatic subcutaneous emphysema, initial encounter; E78.5 Hyperlipidemia, unspecified; F12.90 Cannabis use, unspecified, uncomplicated; K21.9 Gastro-esophageal reflux disease without esophagitis; K29.70 Gastritis, unspecified, without bleeding; K59.00 Constipation, unspecified; M10.9 Gout, unspecified; E66.9 Obesity, unspecified; M06.9 Rheumatoid arthritis, unspecified; Z77.090 Contact with and (suspected) exposure to asbestos; Z82.5 Family history of asthma and other chronic lower respiratory diseases; Z85.46 Personal history of malignant neoplasm of prostate; Z85.820 Personal history of malignant melanoma of skin; Z87.891 Personal history of nicotine dependence; Z91.030 Bee allergy status; Z91.013 Allergy to seafood; Z92.3 Personal history of irradiation; Z90.49 Acquired absence of other specified parts of digestive tract; Z79.899 Other long term (current) drug therapy; Y92.89 Other specified places as the place of occurrence of the external cause; Z68.25 Body mass index [BMI] 25.0-25.9, adult
CPT/HCPCS: 32557; 36415; 36600; 71045; 71046; 80048; 80053; 81003; 82803; 82948; 83036; 85018; 85025; 85610; 85730; 86885; 86900; 86901; 86920; 87081; 88305; 88307; 88309; 88331; 88341; 88342; 93005; 94640; 94760; 97110; 97116; 97162; 97530; A4215; A4618; A6449; A7000; A7048; G0378; J0690; J1100; J1885; J2001; J2250; J2270; J2405; J2704; J2710; J2765; J3010; J3490; J7030; J7120

== ENCOUNTER 2019-06-17 12:53 | Outpatient (CLI) | payer MEDICARE, OTHER ==
[~2019-06-17 12:53] MED LIST changes: +CITROCAL PO; +HYDR-3972 PO; +UBID100C16 PO
== END 2019-06-17 23:59 | disposition home or self-care (01) ==
LOC: RAD 12:53
PROVIDERS: ATTEND Thoracic Surgery (Cardiothoracic Vascular Surgery)
DX: M47.814 Spondylosis without myelopathy or radiculopathy, thoracic region (principal)
CPT/HCPCS: 71046

== ENCOUNTER 2019-07-13 06:33 | Day surgery (SDC) | payer MEDICARE, OTHER ==
[~2019-07-13] VITALS: Ht 177.8 cm; Wt 74.1 kg
[2019-07-13] VITALS (16 sets, daily range): BP systolic 104–134; BP diastolic 52–69
[2019-07-13] MEDS ORDERED: normal saline 1000ml 1,000 ML IV PRN (07:05)
[2019-07-13 07:12] LABS: BASOPHILS % (AUTO) 0.5 % (0-1); EOSINOPHILS # (AUTO) 0.5 X10'3 (0-0.9); EOSINOPHILS % (AUTO) 6.6 % (0-6); HEMATOCRIT 38.4 % (42.0-52.0); HEMOGLOBIN 12.7 g/dl (14.0-17.9); LYMPHOCYTES # (AUTO) 0.9 X10'3 (1.1-4.8); LYMPHOCYTES % (AUTO) 12.5 % (21-51); MEAN CORPUSCULAR HEMOGLOBIN 31.2 PG (27.0-31.0); MEAN CORPUSCULAR VOLUME 94.8 FL (78-98); MEAN PLATELET VOLUME 8.4 FL (7.4-10.4); MONOCYTES # (AUTO) 1.2 X10'3 (0-0.9); MONOCYTES % (AUTO) 17.8 % (2-12); NEUTROPHILS # (AUTO) 4.3 X10'3 (1.8-7.7); NEUTROPHILS % (AUTO) 62.6 % (42-75); PLATELET COUNT 197 X10'3 (140-440); RED BLOOD COUNT 4.05 X10'6 (4.70-6.10); RED CELL DISTRIBUTION WIDTH 18.8 % (11.5-14.5); WHITE BLOOD COUNT 6.9 X10'3 (4.5-11.0)
[2019-07-13 07:28] LABS: ANION GAP 5 (8-16); BLOOD UREA NITROGEN 14 MG/DL (7-18); BUN/CREATININE RATIO 16.3 (5.4-32.0); CALCIUM 8.8 MG/DL (8.5-10.1); CHLORIDE 107 MMOL/L (99-107); CREATININE 0.86 MG/DL (0.60-1.10); GLUCOSE 96 MG/DL (70-104); POTASSIUM 4.2 MMOL/L (3.5-5.1); SODIUM 142 MMOL/L (135-145); TOTAL CARBON DIOXIDE 29.6 MMOL/L (24-32); eGFR 86 ML/MIN
[2019-07-13 07:54] LABS: TOTAL CELLS COUNTED 100
[2019-07-13 07:55] LABS: ANISOCYTOSIS 2+; PLATELET ESTIMATE NORMAL
[2019-07-13] MEDS ORDERED: IRON1CAP34 PO (07:57)
[2019-07-13] MEDS ORDERED: heparin sodium, porcine/PF 100unit/ml 5ML syringe ICATH ONE (08:05)
[2019-07-13] MEDS ORDERED: fentaNYL/PF 50MCG/1 ML 2ML syringe IV PRN (08:05)
[2019-07-13] MEDS ORDERED: midazolam 2 mg/2 ml injection IV PRN (08:05)
[2019-07-13] MEDS ORDERED: LIDOcaine 1%/PF 5ML 10 MG/ML VIAL SQ ONE (08:05)
[2019-07-13] MEDS ORDERED: midazolam 2 mg/2 ml injection ONE (08:09)
[2019-07-13] MEDS ORDERED: fentaNYL/PF 50MCG/1 ML 2ML syringe ONE (08:09)
[2019-07-13] MEDS ORDERED: heparin sodium, porcine/PF 100unit/ml 5ML syringe ONE (09:05)
[2019-07-13] MEDS ORDERED: LIDOcaine 1%/PF 5ML 10 MG/ML VIAL ONE (09:06)
== END 2019-07-13 12:45 | disposition home or self-care (01) ==
LOC: SSTAY O 06:33
PROVIDERS: ATTEND Radiology Diagnostic Radiology
DX: C34.11 Malignant neoplasm of upper lobe, right bronchus or lung (principal); C34.12 Malignant neoplasm of upper lobe, left bronchus or lung; M06.9 Rheumatoid arthritis, unspecified; M19.90 Unspecified osteoarthritis, unspecified site; Z79.01 Long term (current) use of anticoagulants; Z79.899 Other long term (current) drug therapy; Z98.890 Other specified postprocedural states; Z87.891 Personal history of nicotine dependence; Z72.89 Other problems related to lifestyle; Z91.030 Bee allergy status; Z91.018 Allergy to other foods
CPT/HCPCS: 32405; 36415; 36561; 71045; 76937; 77001; 77012; 80048; 85025; 85610; 99152; 99153; C1788; C1894; J1642; J2250; J3010; J7030; 88305; 88341; 88342; A6213